=== PATIENT | male | born 1935 | race Caucasian/White ===

== ENCOUNTER 2018-01-18 10:48 | Inpatient (IN) ==
[2018-01-18] MEDS ORDERED: SALINE FLUSH 10ml SYRINGE IVF PRN (11:41)
--- NOTE | 2018-01-18 11:48 | Emergency Department Report ---
GI Bleed HPI - General Chief complaint: GI Bleed Stated complaint: gi bleed Time Seen by Provider: 01/18/18 11:31 - History of Present Illness HPI Narrative: 82-year-old male presents with history of blood clots in stool. He states he is not passing blood, but does have a history of dementia. His main complaint is that he there is a hair in his right eye he would like to have it removed. He does not see any other reason that he is here. Denies fever or chills. Denies any pain. No nausea vomiting or diarrhea - Related Data Home Medications Medication Instructions Recorded Confirmed Aspirin [Adult Aspirin] 81 mg PO DAILY 01/18/18 01/18/18 Bisacodyl EC TAB [Dulcolax] 5 mg PO BID 01/18/18 01/18/18 Cholecalciferol [Vit. D-3] 1,000 unit PO DAILY 01/18/18 01/18/18 Clopidogrel [Plavix] 75 mg PO DAILY 01/18/18 01/18/18 Divalproex Sodium [Depakote] 250 mg PO QAM 01/18/18 01/18/18 Divalproex Sodium [Depakote] 500 mg PO HS 01/18/18 01/18/18 Docusate Sodium [Colace] 100 mg PO BID 01/18/18 01/18/18 Folic Acid [Folate] 1 mg PO DAILY 01/18/18 01/18/18 Gabapentin [Neurontin] 300 mg PO QAM 01/18/18 01/18/18 Gabapentin [Neurontin] 600 mg PO BID 01/18/18 01/18/18 Hydralazine [Apresoline] 25 mg PO TID 01/18/18 01/18/18 Hydrocodone/APAP 7.5/325 [[place] 1 tab PO TID 01/18/18 01/18/18 7.5/325] Hydroxychloroquine [Plaquenil] 400 mg PO DAILY 01/18/18 01/18/18 Labetalol HCl 200 mg PO DAILY 01/18/18 01/18/18 Levothyroxine Sodium 125 mcg PO DAILY 01/18/18 01/18/18 Losartan Potassium [Cozaar] 25 mg PO DAILY 01/18/18 01/18/18 Multivitamin [One Daily 1 tab PO DAILY 01/18/18 01/18/18 Multivitamin] Nystatin Oral Liq. [Mycostatin] 4 ml PO TID 01/18/18 01/18/18 PredniSONE [Deltasone 10 mg] 10 mg PO WB 01/18/18 01/18/18 Sertraline [Zoloft] 100 mg PO DAILY 01/18/18 01/18/18 Sitagliptin Phosphate [Januvia] 50 mg PO DAILY 01/18/18 01/18/18 Allergies Allergy/AdvReac Type Severity Reaction Status Date / Time No Known Allergies Allergy Verified 01/18/18 11:14 Review of Systems Limitations: ROS unobtainable due to patient's medical condition Physical Exam - Limitations Limitations: altered mental status - General General appearance: alert, in no apparent distress - Normal Exams: Head:: Normocephalic without trauma Eyes:: Pupils are PERRLA w/ EOMI, No scleral icterus, irritation, or foreign bodies noted (he has noted between his eyelid and nose which is curving up into his field of vision, this is removed.) Neck:: Full range of motion, without adenopathy, JVD, bruits or thyromegaly Chest/Respirations:: Clear all pearl, with good airflow, and symmetry bilaterally Cardiovascular:: Regular rate and rhythm, without murmur or gallop, Pulses 2+ all extremities, capillary refill, <2 seconds all extremities Neurological:: Patient is alert, and oriented, cranial nerves, motor/sensory/ cerebellar, exams w/o gross deficits, to observation Course Vital Signs Temperature 97.6 F 01/18/18 11:02 Pulse Rate 70 01/18/18 11:02 Respiratory Rate 14 01/18/18 11:02 Blood Pressure 119/75 01/18/18 11:02 Pulse Oximetry 97 01/18/18 11:02 Temperature 97.6 F 01/18/18 11:02 Pulse Rate 69 01/18/18 11:29 Respiratory Rate 18 01/18/18 11:29 Blood Pressure 119/75 01/18/18 11:02 Pulse Oximetry 97 01/18/18 11:02 GI Bleed - [facility] Narrative Medical decision making narrative: Blood work ordered with peripheral IV placed. Patient given 500 ML bolus. Hemoglobin returns at 12 with platelets of 5000. This is repeated with separate blood draw and platelets returned at 6000. CMP shows some abnormalities notably BUN 50. Guaiac stool was performed twice, both times negative. Elevated BUN and reported history of clots in patient's diaper, I am surprised we did not find proof of bleeding. No other source of bleeding noted. Patient appears to be very stable at this time. He was admitted to hospitalist service with oncology consult. Platelet transfusion will be ordered. - Lab Data Result diagrams: 01/22/18 16:00 01/22/18 05:42 Disposition Clinical Impression: Thrombocytopenia with absent radius syndrome Disposition: 02 To [facility] Condition: Time of Disposition: 15:47 - Seen By: physician
[2018-01-18] MEDS: NS 1,000 ML IV SCH ×3 (11:51→15:44)
--- OUTSIDE RECORDS SUMMARY | 2018-01-18 11:55 | External Medical Summary | CCD ---
:1935 Author Name OSCAR BEY Address [address], [place] [id number] Care Team Providers Name Role Phone KARI CONTRERAS Attending Physician Unavailable Vital Signs Unknown or Not Available. Allergies Unknown or Not Available. Procedures Unknown or Not Available. History of Immunizations Immunization Code Date Td (adult) preservative free 113 11/01/2012 Problems Unknown or Not Available. Results COMP METABOLIC - Collect Date/Time: 09/04/2016 09:40 Test Name Code Test Result Test Units Test Ref Range GLUCOSE 121 mg/dL L=70 H=110 BUN 26 mg/dL L=7 H=18 CREATININE 1.84 mg/dL L=0.60 H=1.30 AGE 80 YEARS GFR 35.7 L=60.0 H=120 SODIUM 142 mmol/L L=136 H=145 POTASSIUM 4.8 mmol/L L=3.5 H=5.1 CHLORIDE 108 mmol/L L=98 H=107 CO2 23 mmol/L L=21 H=32 CALCIUM 9.1 mg/dL L=8.5 H=10.1 AST 30 U/L L=15 H=37 ALT 31 U/L L=12 H=78 ALKALINE PHOS 66 U/L L=46 H=116 TOTAL PROTEIN 6.7 g/dL L=6.4 H=8.2 ALBUMIN 3.0 g/dL L=3.4 H=5.0 TOTAL BILI 0.40 mg/dL L=0.00 H=1.00 DIRECT BILIRUBIN - Collect Date/Time: 09/04/2016 09:40 Test Name Code Test Result Test Units Test Ref Range DIRECT BILI <0.05 mg/dL L=0.00 H=0.30 HGB A1C - Collect Date/Time: 09/04/2016 09:40 Test Name Code Test Result Test Units Test Ref Range HGB A1C 6.2 % L=4.5 H=6.2 eAG 131 mg/dL VALPROIC ACID - Collect Date/Time: 09/04/2016 09:40 Test Name Code Test Result Test Units Test Ref Range VALPROIC ACID 19 ug/mL L=50 H=100 Active Medications Unknown or Not Available. Medications Administered During Visit Unknown or Not Available. 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 If you have left the hospital and have any questions, please contact your primary care physician. Chief Complaint and Reason For Visit Chief Complaint Date of Onset LAB Function Status Unknown or Not Available. Plan of Care Unknown or Not Available. Referral/Transition of Care Unknown or Not Available.
--- NOTE | 2018-01-18 15:49 | History & Physical Report ---
History of Present Illness Date: 01/18/18 Chief complaint: rectal bleeding HPI: Akira Arora is an 82-year-old resident of [facility]. He is a poor historian. According to report, he was found this morning with blood in his briefs. He was also reported to have low blood pressure. senior living notes state that he was wheezing, weak, pale, and diaphoretic. He has not been eating or drinking well for the last week. The patient admitted that he wasn't feeling well earlier, but now feels fine. He denies any specific complaints. When he was asked about the bruising and petechiae on his arms, he indicated that he didn't want to talk about it. He was seen in the emergency department on 01/18/18 to be evaluated for rectal bleeding. He was hemodynamically stable. However, his white blood cell count was 2.9 and on repeat was 2.6; hemoglobin was 12.3 and 12.1; and platelet count was 5, and then 6. On CMP, sodium, potassium, were upper limits of normal. Bicarbonate was 21, BUN was elevated at 50, creatinine upper limit of normal at 1.4, and he had transaminitis with AST of 146 and ALT of 149. INR was 1.0. Stool was heme negative. Given his severe thrombocytopenia and new leukopenia, Dr. Madrigal was notified and the patient was admitted to observation status for further evaluation. Review of Systems ROS unobtainable: due to mental status Past Medical History Medical History Updates: Stage III chronic kidney disease. History of stroke. Dementia. Coronary artery disease. Diastolic CHF. Peripheral vascular disease. Mitral valve and aortic valve sclerosis. Hypertension. Rheumatoid arthritis. GERD. Hypothyroidism. Chronic anemia. Depression. Spinal stenosis. Type 2 diabetes with neuropathy. Dysphagia. Chronic pain syndrome. Hypothyroidism. Macular degeneration. Surgical History: Appendectomy. Cholecystectomy. CABG. Cataracts. Right renal artery stent, 2011, Dr. Navarro. 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 Burnett. Right hip hemiarthroplasty, 2013, Dr. Burnett. Excision of subcutaneous masses to both forearms, 2013, Dr. Welsh. Echo, 2013, showed an EF of 60%, LVH, aortic and mitral sclerosis. Lexiscan, 2014, showed LBBB, EF 53%, mild ischemic changes. Family History: Unable to Obtain - Social History Smoking status: Never smoker Substance use type: does not use Alcohol intake frequency: does not drink Current occupational status: retired Previous occupational history: woodworking machinist Current residence: Shelter Medications Home Medications Medication Instructions Recorded Confirmed Type Aspirin [Adult Aspirin] 81 mg PO DAILY 01/18/18 01/18/18 History Bisacodyl EC TAB [Dulcolax] 5 mg PO BID 01/18/18 01/18/18 History Cholecalciferol [Vit. D-3] 1,000 unit PO DAILY 01/18/18 01/18/18 History Clopidogrel [Plavix] 75 mg PO DAILY 01/18/18 01/18/18 History Divalproex Sodium [Depakote] 250 mg PO QAM 01/18/18 01/18/18 History Divalproex Sodium [Depakote] 500 mg PO HS 01/18/18 01/18/18 History Docusate Sodium [Colace] 100 mg PO BID 01/18/18 01/18/18 History Folic Acid [Folate] 1 mg PO DAILY 01/18/18 01/18/18 History Gabapentin [Neurontin] 300 mg PO QAM 01/18/18 01/18/18 History Gabapentin [Neurontin] 600 mg PO BID 01/18/18 01/18/18 History Hydralazine [Apresoline] 25 mg PO TID 01/18/18 01/18/18 History Hydrocodone/APAP 7.5/325 [[place] 1 tab PO TID 01/18/18 01/18/18 History 7.5/325] Hydroxychloroquine [Plaquenil] 400 mg PO DAILY 01/18/18 01/18/18 History Labetalol HCl 200 mg PO DAILY 01/18/18 01/18/18 History Levothyroxine Sodium 125 mcg PO DAILY 01/18/18 01/18/18 History Losartan Potassium [Cozaar] 25 mg PO DAILY 01/18/18 01/18/18 History Multivitamin [One Daily 1 tab PO DAILY 01/18/18 01/18/18 History Multivitamin] Nystatin Oral Liq. [Mycostatin] 4 ml PO TID 01/18/18 01/18/18 History PredniSONE [Deltasone 10 mg] 10 mg PO WB 01/18/18 01/18/18 History Sertraline [Zoloft] 100 mg PO DAILY 01/18/18 01/18/18 History Sitagliptin Phosphate [Januvia] 50 mg PO DAILY 01/18/18 01/18/18 History Allergies Allergy/AdvReac Type Severity Reaction Status Date / Time No Known Allergies Allergy Verified 01/18/18 11:14 Exam Vital Signs: Temperature 96.5 F L 01/18/18 15:11 Pulse Rate 75 01/18/18 15:11 Respiratory Rate 18 01/18/18 15:11 Blood Pressure 159/84 H 01/18/18 15:11 Pulse Oximetry 96 01/18/18 15:11 Height/Weight/BMI: Height 1.63 m Weight 73.3 kg Body Mass Index 27.7 - Constitutional Present: no acute distress, well nourished, well developed - Routine HEENT Exam Head: Present: normocephalic Eye: Present: PERRL. Absent: conjunctival icterus, scleral injection ENT: Present: mucous membranes dry - Routine Neck Exam Present: supple - Routine Respiratory Exam Present: CTA bilaterally - Routine Cardiovascular Exam Present: RRR, S1, S2, murmur - Routine Abdominal Exam Present: soft, normoactive bowel sounds, non distended, non tender - Routine Extremities Exam Present: no edema - Routine Skin Exam Present: dry, warm, wounds (minimal scattered abrasions to legs.), ecchymosis ( multiple areas of ecchymosis and petechiae noted to arms) - Routine Neurological Exam Present: alert, moving all extremities, facial asymmetry (left facial droop), normal speech - Routine Psychiatric Exam Present: cooperative Results - Labs CBC & Chem 7: 01/18/18 21:50 01/18/18 12:10 Assessment and Plan (1) Thrombocytopenia Current visit: Yes Status: Acute Assessment and Plan: Assessment Pancytopenia with profound thrombocytopenia. Mild transaminitis. Elevated BUN, reported history of possible rectal bleed. Stool heme negative in ED. Hyponatremia, present on admission Stage III chronic kidney disease. History of stroke. Dementia. CAD. Diastolic CHF. Peripheral vascular disease. Mitral valve and aortic valve sclerosis. Hypertension. Rheumatoid arthritis. GERD Hypothyroidism. Chronic anemia Depression. Spinal stenosis. Type 2 diabetes with neuropathy. Dysphagia. Chronic pain syndrome. Hypothyroidism. Macular degeneration. Plan Admit to observation status under the hospitalist service. Dr. Ramsey has been consulted regarding his pancytopenia and profound thrombocytopenia. Workup has been ordered. Will give 2 leukoreduced irradiated plateletpheresis packs Will hold Plaquenil as this can cause leukopenia and thrombocytopenia. Will also hold losartan given his elevated potassium, BUN and reported poor oral intake. Monitor hemoglobin. Will reassess stool for occult blood. Start IV fluids, half-normal saline at 100 mL per hour. senior living notes reviewed. He is on a regular diet with thin liquids there, which will be resumed during hospitalization. Monitor blood glucose, and if they run high, we may instead place him on a consistent carbohydrate diet. Code Status: DNR. PCP: Dr. Hernandez. D/W Dr. Ramsey. Prior records & long term records were reviewed. DVT Prophylaxis: SCD's Resuscitation Status: Do Not Resuscitate - Physician Narrative Physician: Altagracia Madrigal MD Narrative: Date: 01/18/18 Time: 2300 I have independently evaluated and examined this patient. I reviewed the chart, the patient's history, and the [employer]ER/PA's documented findings as above. We discussed and formulated the assessment and plan as above with additions as below: Mr. Arora presented to the emergency room after blood clots were noted in his diaper at the nursing facility this morning. Rectal examination in the ER revealed brown stool which was heme negative however platelet count was 5K and repeated 6K. Hemoglobin was unremarkable white count was low as noted above. Patient is unable to provide any meaningful history and family was not available when I saw him. Patient denied hematemesis, nosebleeds, or rectal bleeding. There was small amount of dried blood periorally, tongue is dry and patient did not although in his mouth adequately to fully evaluate mucosal surfaces of the oral cavity Mild some conjunctival hemorrhage in the right eye, left sclera is clear Respirations nonlabored, abdomen benign, spleen/liver not palpably enlarged Extensive bruising on the extremities MCV 91; creatinine 1.4 with BUN 50-creatinine has been higher in the past but BUN has always been lower. Elevated transaminases Recent med rec from long term reviewed-patient was on methotrexate 2.5 mg daily for proximally 3 weeks, discontinued earlier this week. Given chronic renal failure at risk for methotrexate toxicity as discussed with Dr. Ramsey. Dr. Ramsey has initiated leucovorin pending return of methotrexate level. Hepatic toxicity would be compatible with methotrexate toxicity although I suspect renal insufficiency is chronic taste on prior creatinines available in our system. Elevated BUN consistent with recent GI blood loss which we have not yet confirmed but will continue to monitor hemoglobins serially. Following platelet packs this evening (given emergently as family could not be contacted to consent for transfusion although in the emergency room they requested evaluation and management of the platelet disorder) platelet count increased to 73K. Gabapentin dose decreased slightly due to renal insufficiency. Old records/labs reviewed, discussed with Dr. Crabtree in addition to Dr. Ramsey. Admit as inpatient-patient will require continued IV therapy in addition to transfusions for stabilization. Hospital Course Summary Disclaimer: The visit summary below is not to be considered part of the above Progress Note. Hospital Course: 01/18/18 Admit as inpatient under the hospitalist service. Dr. Ramsey has been consulted regarding his pancytopenia and profound thrombocytopenia. Workup has been ordered. Will give 2 leukoreduced irradiated plateletpheresis packs Will hold Plaquenil as this can cause leukopenia and thrombocytopenia. Recent treatment with daily methotrexate-worrisome for methotrexate toxicity, leucovorin initiated pending methotrexate level. Will also hold losartan given his elevated potassium, BUN and reported poor oral intake. Monitor hemoglobin. Will reassess stool for occult blood. Start IV fluids, half-normal saline at 100 mL per hour. senior living notes reviewed. He is on a regular diet with thin liquids there, which will be resumed during hospitalization. Monitor blood glucose, and if they run high, we may instead place him on a consistent carbohydrate diet.
[2018-01-18] MEDS ORDERED: POLYETHYL GLYCOL 3350 17gm PACKET PO PRN (15:56)
[2018-01-18] MEDS ORDERED: ACETAMINOPHEN 325 MG TABLET PO PRN (15:56)
[2018-01-18] MEDS ORDERED: BISACODYL 10 MG SUPPOSITORY RECTALLY PRN (15:56)
[2018-01-18] MEDS ORDERED: ONDANSETRON 4 MG/2 ML INJECTION IVP PRN (15:56)
[2018-01-18] MEDS ORDERED: SENNA + DOCUSATE TABLET PO PRN (15:56)
[2018-01-18] MEDS ORDERED: NS FLUSH BAG 500ml IV PRN (16:17)
--- NOTE | 2018-01-18 18:17 | Consult Note ---
Oncology HPI - Data of Consult Patient: new to practice Consult date: 01/18/18 Requesting Physician: Altagracia Madrigal MD Primary Care Provider: Diane Hernnadez MD - Consult Narrative Reason for consult: leukopenia and thrombocytopenia History of present illness: Patient is a resident at [facility]. He is brought into the emergency room today with appropriate red blood per stool and increasing bruising and bleeding. He was last hospitalized here in 2016 for TIA. His ability to communicate is limited.. Review of Systems ROS unobtainable: due to mental status [facility] Patient Stated Medical History Cerebrovascular Accident Yes Dementia Yes Transient Ischemic Attacks ( Yes TIA) Angina Yes Coronary Artery Disease Yes Diabetes Mellitus Type 2 Yes Gastroesophageal Reflux Yes Disease Hx Renal Disease Yes Anemia Yes Medical History Updates: Stage III chronic kidney disease. History of stroke. Dementia. Coronary artery disease. Diastolic CHF. Peripheral vascular disease. Mitral valve and aortic valve sclerosis. Hypertension. Rheumatoid arthritis. GERD. Hypothyroidism. Chronic anemia. Depression. Spinal stenosis. Type 2 diabetes with neuropathy. Dysphagia. Chronic pain syndrome. Hypothyroidism. Macular degeneration. Rheumatoid arthritis Surgical History: Appendectomy. Cholecystectomy. CABG. Cataracts. Right renal artery stent, 2011, Dr. Navarro. 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 Burnett. Right hip hemiarthroplasty, 2013, Dr. Burnett. Excision of subcutaneous masses to both forearms, 2013, Dr. Welhs. Echo, 2014, showed an EF of 60%, LVH, aortic and mitral sclerosis. Lexiscan, 2015, showed LBBB, EF 53%, mild ischemic changes. - Social History Smoking status: Never smoker Substance use type: does not use Alcohol intake frequency: does not drink Current occupational status: retired Previous occupational history: cnc lathe machinist Current residence: Assisted Medications Home Medications Medication Instructions Recorded Confirmed Type Aspirin [Adult Aspirin] 81 mg PO DAILY 01/18/18 01/18/18 History Bisacodyl EC TAB [Dulcolax] 5 mg PO BID 01/18/18 01/18/18 History Cholecalciferol [Vit. D-3] 1,000 unit PO DAILY 01/18/18 01/18/18 History Clopidogrel [Plavix] 75 mg PO DAILY 01/18/18 01/18/18 History Divalproex Sodium [Depakote] 250 mg PO QAM 01/18/18 01/18/18 History Divalproex Sodium [Depakote] 500 mg PO HS 01/18/18 01/18/18 History Docusate Sodium [Colace] 100 mg PO BID 01/18/18 01/18/18 History Folic Acid [Folate] 1 mg PO DAILY 01/18/18 01/18/18 History Gabapentin [Neurontin] 300 mg PO QAM 01/18/18 01/18/18 History Gabapentin [Neurontin] 600 mg PO BID 01/18/18 01/18/18 History Hydralazine [Apresoline] 25 mg PO TID 01/18/18 01/18/18 History Hydrocodone/APAP 7.5/325 [[place] 1 tab PO TID 01/18/18 01/18/18 History 7.5/325] Hydroxychloroquine [Plaquenil] 400 mg PO DAILY 01/18/18 01/18/18 History Labetalol HCl 200 mg PO DAILY 01/18/18 01/18/18 History Levothyroxine Sodium 125 mcg PO DAILY 01/18/18 01/18/18 History Losartan Potassium [Cozaar] 25 mg PO DAILY 01/18/18 01/18/18 History Multivitamin [One Daily 1 tab PO DAILY 01/18/18 01/18/18 History Multivitamin] Nystatin Oral Liq. [Mycostatin] 4 ml PO TID 01/18/18 01/18/18 History PredniSONE [Deltasone 10 mg] 10 mg PO WB 01/18/18 01/18/18 History Sertraline [Zoloft] 100 mg PO DAILY 01/18/18 01/18/18 History Sitagliptin Phosphate [Januvia] 50 mg PO DAILY 01/18/18 01/18/18 History Allergies Allergy/AdvReac Type Severity Reaction Status Date / Time No Known Allergies Allergy Verified 01/18/18 11:14 Exam Vital signs: Temperature 96.5 F L 01/18/18 15:11 Pulse Rate 75 01/18/18 15:11 Respiratory Rate 18 01/18/18 15:11 Blood Pressure 159/84 H 01/18/18 15:11 Pulse Oximetry 96 01/18/18 15:11 - Constitutional no acute distress, disheveled, cooperative - Routine HEENT Exam Head: Present: normocephalic Eye: Present: EOMI, scleral injection Comments: Crusting of the lips with blood present on the lips - Routine Neck Exam Present: supple. Absent: lymphadenopathy - Routine Chest/Breast/Axilla Exam Axillae: Absent: lymphadenopathy - Routine Respiratory Exam Present: decreased breath sounds. Absent: accessory muscle use - Routine Cardiovascular Exam Present: RRR, no murmur - Routine Abdominal Exam Present: soft, organomegaly (spleen down 2 fingerbreadths) - Routine Extremities Exam Absent: cyanosis, clubbing - Routine Skin Exam Present: ecchymosis (multiple ecchymosis present on the arms hands at any IV site.) - Routine Neurological Exam Present: CN II-XII intact. Absent: oriented X3 - Routine Psychiatric Exam Present: cooperative. Absent: good insight, good judgment Oncology Results - Labs CBC & Chem 7: 01/18/18 16:38 01/18/18 12:10 Labs: Short CBC 01/18/18 Range/Units 16:38 WBC 2.2 L (4.5-11.0) T/MM3 Hgb 11.3 L (13.5-17.5) GM/DL Hct 33.6 L (41-53) % Plt Count 8 L* (130-400) T/MM3 - Impressions Laboratory Tests 01/18/18 01/18/18 01/18/18 12:10 12:10 16:38 WBC 2.9 L 2.2 L Plt Count 8 L* Creatinine 1.4 AST 146 H ALT 149 H Lactate Dehydrogenase Specimen Hemolysis 51 H 01/18/18 17:26 WBC Plt Count Creatinine AST ALT Lactate Dehydrogenase 563 Specimen Hemolysis Assessment and Plan Assessment and Plan: Pancytopenia with white count of 2.2, normal differential platelet count of 8000 and hemoglobin of 11.2 with reticulocyte count that's very low at 0.3%. LDH is normal at 568. This patient has rheumatoid arthritis and is currently on methotrexate 2.5 mg daily he has chronic renal insufficiency. This is most likely secondary to either build up of MTX with store in ascites or pleural effusion. Will draw methotrexate level and start leucovorin either orally or IV and follow counts. Will transfuse platelets with significant mucosal bleeding and see response to platelets and follow. 2. RA on Prednisone, Hydroxychloraquine and Methotrexate 3. 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 4. History of stroke. 5. Dementia. 6. CAD. 7. Diastolic CHF. 8. Peripheral vascular disease. 9. Mitral valve and aortic valve sclerosis. 10. Hypertension. 11. Rheumatoid arthritis. 12. GERD 13. Hypothyroidism. 14. Chronic anemia 15. Depression. 16. Spinal stenosis. 17. Type 2 diabetes with neuropathy. 18. Dysphagia. 19. Chronic pain syndrome. 20. Hypothyroidism. 21. Macular degeneration. Recommendations: 1 platelets 2. Obtain methotrexate level and begin leucovorin 25 mg IV every 6 hours. 3. Hydration and optimize urine output. 4. Avoid PPIs 5. Supportive care Thank you very much for alignment of 20% in the care of this patient
[2018-01-18] MEDS ORDERED: LEUCOVORIN 25 MG IV SCH (19:15)
[2018-01-18] MEDS ORDERED: [UNRECOGNIZED DRUG - OTHER] IV SCH (19:15)
[2018-01-18] MEDS: 1/2 NS 1,000 ML IV SCH (20:22)
[2018-01-18] MEDS: NS IV SCH (20:23)
[2018-01-18] MEDS: LEUCOVORIN IV SCH (20:23)
[2018-01-18] MEDS ORDERED: HYDRALAZINE 25 MG TABLET PO SCH (21:00)
[2018-01-18] MEDS ORDERED: GABAPENTIN 600 MG TABLET PO SCH (21:00)
[2018-01-18] MEDS: Bisacodyl EC TAB 5 MG TABLET PO SCH (23:04)
[2018-01-18] MEDS: HYDROCODONE/APAP 7.5 MG/325 MG TABLET PO SCH (23:05)
[2018-01-18] MEDS: DIVALPROEX 500 MG TABLET PO SCH (23:05)
[2018-01-18] MEDS ORDERED: GABAPENTIN 300 MG CAPSULE PO SCH (23:16)
[2018-01-19] MEDS: NS IV SCH ×4 (02:48→18:30)
[2018-01-19] MEDS: LEUCOVORIN IV SCH ×4 (02:48→18:30)
[2018-01-19] MEDS: 1/2 NS 1,000 ML IV SCH ×3 (03:51→18:30)
[2018-01-19] MEDS: LEVOTHYROXINE 125 MCG TABLET PO SCH (07:40)
[2018-01-19] MEDS: HYDRALAZINE 25 MG TABLET PO SCH ×3 (08:24→17:48)
[2018-01-19] MEDS: PredniSONE 10 MG TABLET PO SCH (08:24)
[2018-01-19] MEDS: SITAGLIPTIN 100 MG TABLET PO SCH (08:25)
[2018-01-19] MEDS: SERTRALINE 100 MG TABLET PO SCH (08:25)
[2018-01-19] MEDS: LABETALOL 100 MG TABLET PO SCH (08:25)
[2018-01-19] MEDS: GABAPENTIN 300 MG CAPSULE PO SCH (08:26)
[2018-01-19] MEDS: HYDROCODONE/APAP 7.5 MG/325 MG TABLET PO SCH ×3 (08:26→20:41)
[2018-01-19] MEDS: Bisacodyl EC TAB 5 MG TABLET PO SCH ×2 (08:26→20:41)
[2018-01-19] MEDS: DIVALPROEX 250 MG TABLET PO SCH (08:26)
--- NOTE | 2018-01-19 08:58 | Progress Note ---
Oncology Subjective Patient sitting in chair. More alert today. Talkative but not oriented to person place or time. Ecchymoses appear smaller. Less bruising and bleeding. Lips are better today. Review of systems not obtainable secondary to dementia. Exam Vital signs: Temperature 97.8 F 01/19/18 07:00 Pulse Rate 76 01/19/18 07:00 Respiratory Rate 16 01/19/18 07:00 Blood Pressure 122/74 01/19/18 07:00 Pulse Oximetry 95 01/19/18 07:00 - Constitutional no acute distress - Routine HEENT Exam Head: Present: normocephalic Eye: Present: EOMI, PERRL ENT: Present: mucous membranes moist (blood that was present on lips last night is no longer present.) - Routine Neck Exam Present: supple. Absent: lymphadenopathy - Routine Respiratory Exam Present: CTA bilaterally - Routine Cardiovascular Exam Present: RRR, murmur (blowing systolic) - Routine Abdominal Exam Present: soft, non distended, non tender - Routine Extremities Exam Present: edema (1+) - Routine Back/Spine/Pelvis Exam Comments: Arthritis present in hands. He is unable to lift shoulders. - Routine Skin Exam Present: warm, ecchymosis - Routine Neurological Exam Present: alert, CN II-XII intact. Absent: oriented X3 - Routine Psychiatric Exam Absent: normal thought process Oncology Results - Labs CBC & Chem 7: 01/22/18 16:00 01/22/18 05:42 Labs: Short CBC 01/19/18 Range/Units 05:01 WBC 2.6 L (4.5-11.0) T/MM3 Hgb 10.1 L (13.5-17.5) GM/DL Hct 30.6 L (41-53) % Plt Count 59 L (130-400) T/MM3 BMP 01/19/18 05:01 Sodium 141 Potassium 4.0 D Chloride 111 H Carbon Dioxide 24 BUN 38.0 H Creatinine 1.2 D Glucose 76 Calcium 8.5 Liver Function 01/19/18 Range/Units 05:01 Total Bilirubin 0.80 (0.20-1.30) MG/DL AST 106 H (17-59) U/L ALT 124 H (1-50) U/L Alkaline Phosphatase 50 (38-126) U/L Albumin 3.1 L (3.5-5.0) g/dL Laboratory Tests 01/18/18 01/18/18 01/18/18 12:50 16:38 16:38 WBC 2.6 L 2.2 L Plt Count 6 L* 8 L* Neut % (Auto) Lymph % (Auto) Eos % (Auto) Neut # (Auto) INR 0.95 APTT > 200.0 H* Fibrinogen 260 D-Dimer 1043 H AST ALT Lactate Dehydrogenase Vitamin B12 Folate 01/18/18 01/18/18 01/19/18 17:26 21:50 05:01 WBC 2.6 L Plt Count 73 L D 59 L Neut % (Auto) 51.5 Lymph % (Auto) 41.2 Eos % (Auto) 6.5 H Neut # (Auto) 1.3 L INR APTT Fibrinogen D-Dimer AST ALT Lactate Dehydrogenase 563 Vitamin B12 757 Folate > 20.0 H 01/19/18 05:01 WBC Plt Count Neut % (Auto) Lymph % (Auto) Eos % (Auto) Neut # (Auto) INR APTT Fibrinogen D-Dimer AST 106 H ALT 124 H Lactate Dehydrogenase Vitamin B12 Folate Methotrexate level is 0.13 with this last dose being given on 01/14/18. We'll continue leucovorin and repeat methotrexate level tomorrow. We'll continue leucovorin until methotrexate level is less than 0.01. Assessment and Plan Assessment and Plan: Pancytopenia with white count of 2.2, normal differential platelet count of 8000 and hemoglobin of 11.2 with reticulocyte count that's very low at 0.3%. LDH is normal at 568. This patient has rheumatoid arthritis and is currently on methotrexate 2.5 mg daily he has chronic renal insufficiency. This is most likely secondary to either build up of MTX with store in ascites or pleural effusion. Methotrexate level at admission was 0.13. This is 3 days after discontinuation of the methotrexate. We'll continue leucovorin until after methotrexate level decreases to less than 0.01. Platelets improved to 79,000 with transfusion. They're currently 59,000 today. 2. Prolonged PTT of uncertain etiology. This could be secondary to lupus anticoagulant, acquired inhibitor of factor VIII, factor VIII deficiency. Will obtain factor VIII level and factor VIII inhibitor level along with mixing study and lupus anticoagulant. Before meals that he has not been given in the heparin-like substances. 3. RA on Prednisone, Hydroxychloraquine and Methotrexate 4. 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 5. CAD. 6. Elevated liver functions probably secondary to methotrexate 7. Peripheral vascular disease. 8. Mitral valve and aortic valve sclerosis. 9. GERD 10. Hypothyroidism. 11. Chronic anemia 12 Type 2 diabetes with neuropathy. Recommendations: 1 Follow platelets and transfuse if less than 20K with increased PTT 2. Continue leucovorin 25 mg IV every 6 hours Methotrexate level in AM. 3. Hydration and optimize urine output. 4. Avoid PPIs and NSAI 5. Obtain factor VIII level, factor VIII inhibitor level, mixing study and lupus anticoagulant. Repeat studies today. 5. Supportive care Thank you very much for allowing me to participate in the care of this patient. - Time Spent With Patient Total time spent is greater than 50% in coordination of care (as documented) at patient's floor/unit and/or counseling patient: 25 - 35 minutes
[2018-01-19] MEDS: GABAPENTIN 600 MG TABLET PO SCH ×2 (16:08→20:40)
--- NOTE | 2018-01-19 16:25 | Progress Note ---
- Date 01/19/18 Subjective: Jt is seen today in follow up. He is alert, non-verbal. Appears to have some dried blood around lips. Unable to give me a history- chart is reviewed for collateral information. Objective Vital signs: Temperature 97.8 F 01/19/18 07:00 Pulse Rate 72 01/19/18 15:39 Respiratory Rate 18 01/19/18 15:39 Blood Pressure 143/53 H 01/19/18 15:39 Pulse Oximetry 97 01/19/18 15:39 Height/Weight/BMI: Weight 74.3 kg - Constitutional Present: no acute distress, disheveled, other (restless. ) - Routine HEENT Exam Head: Present: atraumatic ENT: Present: mucous membranes dry (Some dried blood around lips. ) - Routine Respiratory Exam Present: CTA bilaterally. Absent: rales, rhonchi, crackles - Routine Cardiovascular Exam Present: RRR, S1, S2, murmur - Routine Abdominal Exam Present: soft, non distended, non tender - Routine Extremities Exam Present: no edema, non tender - Routine Musculoskeletal Exam Musculoskeletal: Present: moving extremities well - Routine Skin Exam Present: intact, dry, warm - Routine Neurological Exam Present: alert, moving all extremities. Absent: oriented X3 - Routine Psychiatric Exam Present: unable to assess Results - Labs CBC & Chem 7: 01/19/18 05:01 01/19/18 05:01 Labs: +FOB Assessment and Plan (1) Thrombocytopenia Current visit: Yes Status: Acute Assessment and Plan: Assessment Pancytopenia with profound thrombocytopenia. Mild transaminitis. Elevated BUN, reported history of possible rectal bleed. Stool heme negative in ED. Hyponatremia, present on admission Stage III chronic kidney disease. History of stroke. Dementia. CAD. Diastolic CHF. Peripheral vascular disease. Mitral valve and aortic valve sclerosis. Hypertension. Rheumatoid arthritis. GERD Hypothyroidism. Chronic anemia Depression. Spinal stenosis. Type 2 diabetes with neuropathy. Dysphagia. Chronic pain syndrome. Hypothyroidism. Macular degeneration. Plan Patient continues to demonstrate pancytopenia and FOB is positive. Requires ongoing inpatient evaluation and treatment, changed to inpatient status post admission. Dr. Ramsey following- appreciate assistance. Peripheral smear and thrombotic panel are pending. s/p 2 leukoreduced irradiated plateletpheresis packs Will hold Plaquenil & MTX as this can cause leukopenia and thrombocytopenia. Continue IVF as he still appears a bit dry. senior care notes reviewed. He is on a regular diet with thin liquids there, which will be resumed during hospitalization. BG has been stable. Code Status: DNR. PCP: Dr. Hernandez. DVT Prophylaxis: SCD's GI Prophylaxis: Pepcid Resuscitation Status: Do Not Resuscitate - Physician Narrative Physician: Altagracia Madrigal MD Narrative: Date: 01/19/18 Time: 1800 I have independently evaluated and examined this patient. I reviewed the chart, the patient's history, and the COVER C[employer] MACHINE/PA's documented findings as above. We discussed and formulated the assessment and plan as above with additions as below: Jt was resting in bed and indicated he did not wish to be bothered by pulling the covers over his head at the time of my assessment. He complained of being cold but did not offer any other history. Nursing report oral intake has been poor, ongoing confusion, incontinence, and generalized weakness requiring lift to assist with transfer to chair. NAD, respirations nonlabored with clear breath sounds anteriorly Extensive bruising over the forearms Repeat PTT 23.5--suspect elevated PTT yesterday was drawn through a heparinized line Additional coag studies pending including PTT mixing study Hemoglobin and platelet count drifting down following transfusion of platelets yesterday, GI blood loss present but not actively bleeding, continue to monitor. Elevated methotrexate level of 0.13-3 days after medication discontinued reported to Dr. Ramsey this morning; continue leucovorin. Probable cause of neutropenia, thrombocytopenia, and liver enzyme abnormalities. Discussed with Dr. Ramsey this morning; remains at high risk for hematologic complications due to thrombocytopenia. Hospital Course Summary Disclaimer: The visit summary below is not to be considered part of the above Progress Note. Hospital Course: 01/18/18 Admit as inpatient under the hospitalist service. Dr. Ramsey has been consulted regarding his pancytopenia and profound thrombocytopenia. Workup has been ordered. Will give 2 leukoreduced irradiated plateletpheresis packs Will hold Plaquenil as this can cause leukopenia and thrombocytopenia. Recent treatment with daily methotrexate-worrisome for methotrexate toxicity, leucovorin initiated pending methotrexate level. Will also hold losartan given his elevated potassium, BUN and reported poor oral intake. Monitor hemoglobin. Will reassess stool for occult blood. Start IV fluids, half-normal saline at 100 mL per hour. senior care notes reviewed. He is on a regular diet with thin liquids there, which will be resumed during hospitalization. Monitor blood glucose, and if they run high, we may instead place him on a consistent carbohydrate diet. 01/19/18 Patient continues to demonstrate pancytopenia and FOB is positive. Peripheral smear and thrombotic panel are pending. s/p 2 leukoreduced irradiated plateletpheresis packs Repeat PTT 23.5--suspect elevated PTT yesterday was drawn through a heparinized line. Additional coag studies pending including PTT mixing study. Hemoglobin and platelet count drifting down following transfusion of platelets yesterday, GI blood loss present but not actively bleeding, continue to monitor. Elevated methotrexate level of 0.13-3 days after medication discontinued reported to Dr. Ramsey this morning; continue leucovorin. Probable cause of neutropenia, thrombocytopenia, and liver enzyme abnormalities. Will hold Plaquenil as this can also cause leukopenia and thrombocytopenia. Continue IVF as he still appears a bit dry. senior care notes reviewed. He is on a regular diet with thin liquids there, which will be resumed during hospitalization. BG has been stable.
[2018-01-19] MEDS: FAMOTIDINE 20 MG TABLET PO SCH (20:41)
[2018-01-19] MEDS: DIVALPROEX 500 MG TABLET PO SCH (20:42)
[2018-01-19] MEDS ORDERED: FALL RISK - PHARMACY CONSULT MC ONE (20:49)
[2018-01-20] MEDS: 1/2 NS 1,000 ML IV SCH ×5 (01:23→18:49)
[2018-01-20] MEDS: LEUCOVORIN IV SCH ×4 (01:24→20:01)
[2018-01-20] MEDS: NS IV SCH ×4 (01:24→20:01)
[2018-01-20] MEDS: LEVOTHYROXINE 125 MCG TABLET PO SCH (05:45)
[2018-01-20] MEDS: HYDRALAZINE 25 MG TABLET PO SCH ×3 (08:39→17:05)
[2018-01-20] MEDS: DIVALPROEX 250 MG TABLET PO SCH (08:40)
[2018-01-20] MEDS: SERTRALINE 100 MG TABLET PO SCH (08:40)
[2018-01-20] MEDS: Bisacodyl EC TAB 5 MG TABLET PO SCH ×2 (08:40→22:47)
[2018-01-20] MEDS: GABAPENTIN 300 MG CAPSULE PO SCH (08:40)
[2018-01-20] MEDS: FOLIC ACID 1 MG TABLET PO SCH (08:40)
[2018-01-20] MEDS: PredniSONE 10 MG TABLET PO SCH (08:40)
[2018-01-20] MEDS: LABETALOL 100 MG TABLET PO SCH (08:41)
[2018-01-20] MEDS: SITAGLIPTIN 100 MG TABLET PO SCH (09:00)
[2018-01-20] MEDS: HYDROCODONE/APAP 7.5 MG/325 MG TABLET PO SCH ×3 (09:00→22:48)
--- NOTE | 2018-01-20 09:29 | Progress Note ---
<Catalina Romero L - Last Filed: 01/20/18 14:07> Oncology Subjective Reclining in hospital bed, alone in room. Opens eyes when spoken to, but no verbal response to my questions. When asked if having pain, shakes head no Unable to obtain ROS secondary to dementia. Exam Vital signs: Temperature 96.5 F L 01/20/18 07:39 Pulse Rate 95 01/20/18 07:39 Respiratory Rate 22 01/20/18 07:39 Blood Pressure 128/81 01/20/18 07:39 Pulse Oximetry 95 01/20/18 07:39 Narrative: Generic Name Dose Route Start Last Admin Trade Name Freq PRN Reason Stop Dose Admin Acetaminophen 325 - 650 mg 01/18/18 15:56 Tylenol PO Q5H PRN Discomfort Hydrocodone Bitart/Acetaminophen 1 tab 01/18/18 21:00 01/20/18 09:00 [place] 7.5/325 PO Not Given TID FRED Bisacodyl 5 mg 01/18/18 21:00 01/20/18 08:40 Dulcolax PO 5 mg BID FRED Administration Bisacodyl 10 mg 01/18/18 15:56 Dulcolax RECTALLY DAILY PRN Constipation Divalproex Sodium 250 mg 01/19/18 09:00 01/20/18 08:40 Depakote PO 250 mg QAM FRED Administration Divalproex Sodium 500 mg 01/18/18 21:00 01/19/18 20:42 Depakote PO 500 mg HS FRED Administration Famotidine 20 mg 01/19/18 21:00 01/19/18 20:41 Pepcid PO 20 mg HS FRED Administration Folic Acid 1 mg 01/20/18 09:00 01/20/18 08:40 Folate PO 1 mg DAILY FRED Administration Gabapentin 300 mg 01/19/18 09:00 01/20/18 08:40 Neurontin PO 300 mg QAM FRED Administration Gabapentin 600 mg 01/19/18 15:00 01/19/18 20:40 Neurontin PO 600 mg 1200,2100 FRED Administration Hydralazine HCl 25 mg 01/19/18 08:00 01/20/18 08:39 Apresoline PO 25 mg WM FRED Administration Sodium Chloride 1,000 mls @ 100 mls/hr 01/18/18 16:30 01/20/18 08:37 1/2 Normal Saline IV Not Given .Q10H FRED Leucovorin Calcium 25 mg/ 25 mls @ 150 mls/hr 01/18/18 19:30 01/20/18 06:58 Sodium Chloride IV Infused Q6H FRED Infusion Labetalol HCl 200 mg 01/19/18 09:00 01/20/18 08:41 Normodyne PO 200 mg DAILY FRED Administration Levothyroxine Sodium 125 mcg 01/19/18 07:00 01/20/18 05:45 Synthroid PO 125 mcg ACB FRED Administration Ondansetron HCl 4 mg 01/18/18 15:56 Zofran IVP Q6H PRN Nausea &/or vomiting Polyethylene Glycol 17 gm 01/18/18 15:56 Miralax PO DAILY PRN Prednisone 10 mg 01/19/18 08:00 01/20/18 08:40 Deltasone 10 Mg PO 10 mg WB FRED Administration Senna/Docusate Sodium 1 tab 01/18/18 15:56 Senna Plus Tablet PO BID PRN Constipation Sertraline HCl 100 mg 01/19/18 09:00 01/20/18 08:40 Zoloft PO 100 mg DAILY FRED Administration Sitagliptin Phosphate 50 mg 01/19/18 09:00 01/20/18 09:00 Januvia PO Not Given DAILY FRED Sodium Chloride 10 - 80 ml 01/18/18 11:41 01/18/18 11:52 Iv Flush IVF 10 ml PRN PRN Administration [place]ushing Sodium Chloride 500 ml 01/18/18 16:17 Normal Saline IV PRN PRN Discontinued Medications Generic Name Dose Route Start Last Admin Trade Name Freq PRN Reason Stop Dose Admin Gabapentin 600 mg 01/18/18 21:00 01/18/18 23:04 Neurontin PO 600 mg BID FRED Administration Gabapentin 300 mg 01/18/18 23:16 01/19/18 09:39 Neurontin PO Not Given 1500,2100 FRED Hydralazine HCl 25 mg 01/18/18 21:00 01/18/18 23:05 Apresoline PO 25 mg TID FRED Administration Sodium Chloride 1,000 mls @ 999 mls/hr 01/18/18 11:45 01/18/18 15:44 Normal Saline IV Not Given .Q1H1M FRED Leucovorin Calcium 25 mg/ 2.5 mls @ 150 mls/hr 01/18/18 19:15 Sterile Water IV Q6H [facility] Pharmacy Consult 1 each 01/19/18 20:49 Pharmacy Consult - Fall Risk 01/19/18 20:50 ONE TIME ONE - Constitutional no acute distress, well developed, cooperative - Routine HEENT Exam Head: Present: normocephalic Eye: Present: EOMI ENT: Present: mucous membranes moist - Routine Neck Exam Present: supple. Absent: lymphadenopathy - Routine Respiratory Exam Present: decreased breath sounds. Absent: wheezes, crackles - Routine Cardiovascular Exam Present: RRR, murmur - Routine Abdominal Exam Present: soft, normoactive bowel sounds, non tender - Routine Extremities Exam Present: no edema - Routine Skin Exam Present: intact, dry, pallor, ecchymosis (nivia. arms). Absent: petechiae - Routine Neurological Exam Present: alert, moving all extremities - Routine Psychiatric Exam Present: cooperative Oncology Results - Labs CBC & Chem 7: 01/20/18 05:41 01/20/18 05:41 Labs: Short CBC 01/20/18 Range/Units 05:41 WBC 2.1 L (4.5-11.0) T/MM3 Hgb 10.6 L (13.5-17.5) GM/DL Hct 31.2 L (41-53) % Plt Count 45 L (130-400) T/MM3 [facility] 01/20/18 05:41 Sodium 140 Potassium 4.3 Chloride 108 H Carbon Dioxide 22 BUN 29.0 H Creatinine 1.1 Glucose 68 L Calcium 8.5 Liver Function 01/20/18 Range/Units 05:41 Total Bilirubin 1.30 (0.20-1.30) MG/DL AST 79 H (17-59) U/L ALT 100 H (1-50) U/L Alkaline Phosphatase 53 (38-126) U/L Albumin 3.3 L (3.5-5.0) g/dL Assessment and Plan Assessment and Plan: Pancytopenia with white count of 2.2, normal differential platelet count of 8000 and hemoglobin of 11.2 with reticulocyte count that's very low at 0.3%. LDH is normal at 568. This patient has rheumatoid arthritis and is currently on methotrexate 2.5 mg daily he has chronic renal insufficiency. This is most likely secondary to either build up of MTX with store in ascites or pleural effusion. Methotrexate level at admission was 0.13. This is 3 days after discontinuation of the methotrexate. We'll continue leucovorin until after methotrexate level decreases to less than 0.01. Methotrexate level today is < 0.04. Platelets improved to 79,000 with transfusion, platelets currently 84,000 today. 2. Prolonged PTT of uncertain etiology. This could be secondary to lupus anticoagulant, acquired inhibitor of factor VIII, factor VIII deficiency. Will obtain factor VIII level and factor VIII inhibitor level along with mixing study and lupus anticoagulant. 3. RA on Prednisone, Hydroxychloraquine and Methotrexate 4. 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 5. CAD. 6. Elevated liver functions probably secondary to methotrexate 7. Peripheral vascular disease. 8. Mitral valve and aortic valve sclerosis. 9. GERD 10. Hypothyroidism. 11. Chronic anemia 12 Type 2 diabetes with neuropathy. Plan Continue supportive care/leucovorin until methotrexate level less than 0.01. Follow platelets. - Time Spent With Patient Total time spent is greater than 50% in coordination of care (as documented) at patient's floor/unit and/or counseling patient: less than 15 minutes <Terry Ramsey - Last Filed: 01/20/18 16:58> Exam Vital signs: Temperature 98.0 F 01/20/18 15:00 Pulse Rate 80 01/20/18 15:00 Respiratory Rate 18 01/20/18 15:02 Blood Pressure 114/64 01/20/18 15:00 Pulse Oximetry 95 01/20/18 15:00 Oncology Results - Labs CBC & Chem 7: 01/20/18 05:41 01/20/18 05:41 Labs: Short CBC 01/20/18 Range/Units 05:41 WBC 2.1 L (4.5-11.0) T/MM3 Hgb 10.6 L (13.5-17.5) GM/DL Hct 31.2 L (41-53) % Plt Count 45 L (130-400) T/MM3 BMP 01/20/18 05:41 Sodium 140 Potassium 4.3 Chloride 108 H Carbon Dioxide 22 BUN 29.0 H Creatinine 1.1 Glucose 68 L Calcium 8.5 Liver Function 01/20/18 Range/Units 05:41 Total Bilirubin 1.30 (0.20-1.30) MG/DL AST 79 H (17-59) U/L ALT 100 H (1-50) U/L Alkaline Phosphatase 53 (38-126) U/L Albumin 3.3 L (3.5-5.0) g/dL Assessment and Plan Assessment and Plan: Patient seen, Chart reviewed. I participated in the development of hte plan of care of this patient. Platelets 45K on 01/20/18. Methotrexate level today is now 0.04. Will continue leukovorin 24 hours more and then oral folate supplementation. PTT of >200 on admission corrected with redraw at 23. Mixing study pending. Stool positive for blood. Probably GI toxicity from methotrexate. LFT better. Also probable MTX toxicity. Recommendations. Supportive care Stop Leukovorin tomorrow Follow platelets and transfuse if less than 10 or active bleeding. Discussed with Dr. Madrigal Laboratory Tests 01/18/18 01/18/18 01/18/18 12:10 16:38 17:26 WBC Plt Count APTT > 200.0 H* Fibrinogen 260 Total Bilirubin 0.90 AST 146 H ALT 149 H Alkaline Phosphatase 53 Lactate Dehydrogenase 563 Vitamin B12 757 Folate > 20.0 H 01/19/18 01/19/18 01/19/18 05:01 05:01 07:52 WBC 2.6 L Plt Count 59 L APTT 23.5 L Fibrinogen 314 Total Bilirubin 0.80 AST 106 H ALT 124 H Alkaline Phosphatase 50 Lactate Dehydrogenase Vitamin B12 Folate 01/20/18 01/20/18 05:41 05:41 WBC 2.1 L Plt Count 45 L APTT Fibrinogen Total Bilirubin 1.30 AST 79 H ALT 100 H Alkaline Phosphatase 53 Lactate Dehydrogenase Vitamin B12 Folate - Time Spent With Patient Total time spent is greater than 50% in coordination of care (as documented) at patient's floor/unit and/or counseling patient: 25 - 35 minutes
[2018-01-20] MEDS: GABAPENTIN 600 MG TABLET PO SCH ×2 (12:59→22:49)
[2018-01-20 14:08] VITALS: BMI 28.1
--- NOTE | 2018-01-20 14:30 | Progress Note ---
- Date 01/20/18 Subjective: Patient is seen in his room after lunch. He denies CP, SOA, abd pain, n/v/f/c. He appears confused. Does not talk to me other than to answer yes/no questions. Objective Vital signs: Temperature 96.5 F L 01/20/18 07:39 Pulse Rate 95 01/20/18 07:39 Respiratory Rate 22 01/20/18 07:39 Blood Pressure 128/81 01/20/18 07:39 Pulse Oximetry 95 01/20/18 07:39 Height/Weight/BMI: Height 1.63 m Weight 74.4 kg Body Mass Index 28.1 - Constitutional Present: no acute distress, well nourished, well developed - Routine HEENT Exam Head: Present: normocephalic, atraumatic Comments: dried blood to R side of pt's mouth. Pt not cooperative with opening mouth for further exam. - Routine Respiratory Exam Present: decreased breath sounds, CTA bilaterally. Absent: wheezes - Routine Cardiovascular Exam Present: RRR, murmur - Routine Abdominal Exam Present: soft, non distended, non tender - Routine Extremities Exam Present: no edema, normal capillary refill - Routine Skin Exam Present: dry, warm - Routine Neurological Exam Present: alert, moving all extremities - Routine Lymphatic Exam Lymphatic: Absent: adenopathy - Routine Psychiatric Exam Present: unable to assess Results - Labs CBC & Chem 7: 01/20/18 05:41 01/20/18 05:41 Labs: Laboratory Tests 01/20/18 05:41 AST 79 H ALT 100 H Assessment and Plan (1) Thrombocytopenia Current visit: Yes Status: Acute Assessment and Plan: Assessment Pancytopenia with profound thrombocytopenia. Mild transaminitis. Elevated BUN, reported history of possible rectal bleed. Stool heme positive Hyponatremia, present on admission Stage III chronic kidney disease. History of stroke. Dementia. CAD. Diastolic CHF. Peripheral vascular disease. Mitral valve and aortic valve sclerosis. Hypertension. Rheumatoid arthritis. GERD Hypothyroidism. Chronic anemia Depression. Spinal stenosis. Type 2 diabetes with neuropathy. Dysphagia. Chronic pain syndrome. Hypothyroidism. Macular degeneration. Plan Dr. Ramsey following. Peripheral smear, lupus studies and thrombotic panel are pending. S/p 1 leuko-reduced irradiated plateletpheresis pack on 01/18/18. Platelets 73--> 59-->45K. Per Dr. Ramsey's note - "transfuse if <20K w/ increased PTT" Plaquenil & MTX remain on hold. Methotrexate level at <0.04 today. Continues on Leucovorin. LFT's improving. CMP in am. Per oncology note "leucovorin until methotrexate level less than 0.01." Hgb is stable despite black stools reported yesterday and today and + hemoccult. Continue to monitor. CBC in am. Continue IVF as he is not taking much po. BS was 65 this am and pt ate very little breakfast, thus Januvia was held. VSS DVT Prophylaxis: SCD's Resuscitation Status: Do Not Resuscitate - Physician Narrative Physician: Altagracia Madrigal MD Narrative: Date: 01/20/18 Time: 2200 I have independently evaluated and examined this patient. I reviewed the chart, the patient's history, and the [employer]/PA's documented findings as above. We discussed and formulated the assessment and plan as above with additions as below: Jt was seen this morning and did not respond to questions; nursing report minimal oral intake and black stools earlier today. NAD, extensive peripheral bruising Respirations nonlabored, harsh 2/6 systolic ejection murmur Slow drifting platelet count, methotrexate level down to nondetectable level per today's report Discussed with Dr. Ramsey-continue leucovorin at least one additional day; liver enzymes improving-consistent with methotrexate toxicity. Will not repeat methotrexate level-as low as lab will report. Repeat PTT in a.m.; given 1 normal study I don't believe additional coag studies are needed. Initiate nutritional supplements Hospital Course Summary Disclaimer: The visit summary below is not to be considered part of the above Progress Note. Hospital Course: 01/18/18 Admit as inpatient under the hospitalist service. Dr. Ramsey has been consulted regarding his pancytopenia and profound thrombocytopenia. Workup has been ordered. Will give 2 leukoreduced irradiated plateletpheresis packs Will hold Plaquenil as this can cause leukopenia and thrombocytopenia. Recent treatment with daily methotrexate-worrisome for methotrexate toxicity, leucovorin initiated pending methotrexate level. Will also hold losartan given his elevated potassium, BUN and reported poor oral intake. Monitor hemoglobin. Will reassess stool for occult blood. Start IV fluids, half-normal saline at 100 mL per hour. long term notes reviewed. He is on a regular diet with thin liquids there, which will be resumed during hospitalization. Monitor blood glucose, and if they run high, we may instead place him on a consistent carbohydrate diet. 01/19/18 Patient continues to demonstrate pancytopenia and FOB is positive. Peripheral smear and thrombotic panel are pending. s/p 1 leukoreduced irradiated plateletpheresis pack Repeat PTT 23.5--suspect elevated PTT yesterday was drawn through a heparinized line. Additional coag studies pending including PTT mixing study. Hemoglobin and platelet count drifting down following transfusion of platelets yesterday, GI blood loss present but not actively bleeding, continue to monitor. Elevated methotrexate level of 0.13-3 days after medication discontinued reported to Dr. Ramsey this morning; continue leucovorin. Probable cause of neutropenia, thrombocytopenia, and liver enzyme abnormalities. Will hold Plaquenil as this can also cause leukopenia and thrombocytopenia. Continue IVF as he still appears a bit dry. long term notes reviewed. He is on a regular diet with thin liquids there, which will be resumed during hospitalization. BG has been stable. 01/20/18 Dr. Ramsey following. Peripheral smear, lupus studies and thrombotic panel are pending. S/p 1 leuko-reduced irradiated plateletpheresis pack on 01/18/18. Platelets 73--> 59-->45K. Per Dr. Ramsey's note - "transfuse if <20K w/ increased PTT" Plaquenil & MTX remain on hold. Methotrexate level at <0.04 today. Continues on Leucovorin. LFT's improving. Hgb is stable despite black stools reported yesterday and today and + hemoccult. Continue to monitor. CBC in am. Continue IVF as he is not taking much po. BS was 65 this am and pt ate very little breakfast, thus Januvia was held.
[2018-01-20] MEDS: DIVALPROEX 500 MG TABLET PO SCH (22:48)
[2018-01-20] MEDS: FAMOTIDINE 20 MG TABLET PO SCH (22:48)
[2018-01-21] MEDS: LEUCOVORIN IV SCH ×4 (01:24→19:00)
[2018-01-21] MEDS: NS IV SCH ×4 (01:24→19:00)
[2018-01-21] MEDS: 1/2 NS 1,000 ML IV SCH ×4 (02:37→23:34)
[2018-01-21] MEDS: LEVOTHYROXINE 125 MCG TABLET PO SCH (07:43)
[2018-01-21] MEDS: SERTRALINE 100 MG TABLET PO SCH (09:47)
[2018-01-21] MEDS: HYDROCODONE/APAP 7.5 MG/325 MG TABLET PO SCH ×3 (09:47→20:07)
[2018-01-21] MEDS: DIVALPROEX 250 MG TABLET PO SCH (09:47)
[2018-01-21] MEDS: Bisacodyl EC TAB 5 MG TABLET PO SCH ×2 (09:47→20:00)
[2018-01-21] MEDS: GABAPENTIN 300 MG CAPSULE PO SCH (09:47)
[2018-01-21] MEDS: SITAGLIPTIN 100 MG TABLET PO SCH (09:47)
[2018-01-21] MEDS: HYDRALAZINE 25 MG TABLET PO SCH ×3 (09:47→17:00)
[2018-01-21] MEDS: LABETALOL 100 MG TABLET PO SCH (09:48)
[2018-01-21] MEDS: FOLIC ACID 1 MG TABLET PO SCH (09:48)
[2018-01-21] MEDS: PredniSONE 10 MG TABLET PO SCH (09:48)
[2018-01-21] MEDS: GABAPENTIN 600 MG TABLET PO SCH ×2 (12:38→20:08)
--- NOTE | 2018-01-21 13:38 | CT Scan Report ---
Indication: AMS, thrombocytopenia PROCEDURE: CT head/brain wo con: Encounter: Initial Comparison: January 17, 2016 Technique: Axial CT images through the head were performed without contrast. Iterative Reconstruction dose reducing technique was utilized. FINDINGS: Moderate atrophy. Old left frontal lobe infarct with encephalomalacia. The ventricles are stable. There are scattered areas of low attenuation in the white matter which most likely represent changes from chronic microvascular ischemia. The brainstem, cerebellum, and cerebral hemispheres otherwise have a normal morphology and CT attenuation. There is no evidence of midline displacement. No hemorrhage, signs of acute territorial stroke, mass effect, mass lesions, or edema is evident. The visualized portions of the skull base, midface, and calvarium demonstrate no abnormality. The paranasal sinuses are well aerated and free of significant disease. The tympanic and mastoid cavities appear normal. IMPRESSION: No acute intracranial abnormality or hemorrhage. .
--- NOTE | 2018-01-21 15:43 | Progress Note ---
<Catalina Romero L - Last Filed: 01/21/18 15:40> Oncology Subjective Reclining in hospital bed. Opens eyes when spoken to. No verbal response. Patient would not open mouth to examine for mucositis. Unable to obtain review of system. Exam Vital signs: Temperature 98.1 F 01/21/18 15:31 Pulse Rate 78 01/21/18 15:31 Respiratory Rate 20 01/21/18 15:31 Blood Pressure 127/62 01/21/18 15:31 Pulse Oximetry 97 01/21/18 15:31 Narrative: Acetaminophen (Tylenol) 325 - 650 mg PO Q5H PRN PRN Reason: Discomfort Hydrocodone Bitart/Acetaminophen ([place] 7.5/325) 1 tab PO TID [facility] Last Admin: 01/21/18 15:08 Dose: Not Given Bisacodyl (Dulcolax) 5 mg PO BID [facility] Last Admin: 01/21/18 09:47 Dose: 5 mg Bisacodyl (Dulcolax) 10 mg RECTALLY DAILY PRN PRN Reason: Constipation Divalproex Sodium (Depakote) 250 mg PO QAM [facility] Last Admin: 01/21/18 09:47 Dose: 250 mg Divalproex Sodium (Depakote) 500 mg PO HS [facility] Last Admin: 01/20/18 22:48 Dose: 500 mg Famotidine (Pepcid) 20 mg PO HS [facility] Last Admin: 01/20/18 22:48 Dose: 20 mg Folic Acid (Folate) 1 mg PO DAILY [facility] Last Admin: 01/21/18 09:48 Dose: 1 mg Gabapentin (Neurontin) 300 mg PO QAM [facility] Last Admin: 01/21/18 09:47 Dose: 300 mg Gabapentin (Neurontin) 600 mg PO 1200,2100 [facility] Last Admin: 01/21/18 12:38 Dose: Not Given Hydralazine HCl (Apresoline) 25 mg PO WM [facility] Last Admin: 01/21/18 12:38 Dose: Not Given Sodium Chloride (1/2 Normal Saline) 1,000 mls @ 100 mls/hr IV .Q10H [facility] Last Admin: 01/21/18 12:37 Dose: 100 mls/hr Leucovorin Calcium 25 mg/ (Sodium Chloride) 25 mls @ 150 mls/hr IV Q6H [facility] Last Infusion: 01/21/18 13:55 Dose: Infused Labetalol HCl (Normodyne) 200 mg PO DAILY [facility] Last Admin: 01/21/18 09:48 Dose: 200 mg Levothyroxine Sodium (Synthroid) 125 mcg PO ACB [facility] Last Admin: 01/21/18 07:43 Dose: 125 mcg Ondansetron HCl (Zofran) 4 mg IVP Q6H PRN PRN Reason: Nausea &/or vomiting Polyethylene Glycol (Miralax) 17 gm PO DAILY PRN Prednisone (Deltasone 10 Mg) 10 mg PO WB [facility] Last Admin: 01/21/18 09:48 Dose: 10 mg Senna/Docusate Sodium (Senna Plus Tablet) 1 tab PO BID PRN PRN Reason: Constipation Sertraline HCl (Zoloft) 100 mg PO DAILY [facility] Last Admin: 01/21/18 09:47 Dose: 100 mg Sitagliptin Phosphate (Januvia) 50 mg PO DAILY [facility] Last Admin: 01/21/18 09:47 Dose: 50 mg Sodium Chloride (Iv Flush) 10 - 80 ml IVF PRN PRN PRN Reason: Flushing Last Admin: 01/18/18 11:52 Dose: 10 ml Sodium Chloride (Normal Saline) 500 ml IV PRN PRN - Constitutional no acute distress, cooperative - Routine HEENT Exam Head: Present: normocephalic Eye: Present: EOMI - Routine Neck Exam Present: supple. Absent: lymphadenopathy - Routine Respiratory Exam Present: decreased breath sounds. Absent: wheezes, crackles - Routine Cardiovascular Exam Present: RRR, murmur - Routine Abdominal Exam Present: soft, non tender. Absent: mass - Routine Extremities Exam Present: no edema, full ROM - Routine Skin Exam Present: dry, pallor, ecchymosis (bilateral upper arms with scattered ecchymosis , no petechiae.). Absent: petechiae - Routine Neurological Exam Present: alert, altered mental status, moving all extremities - Routine Psychiatric Exam Present: unable to assess Oncology Results - Labs CBC & Chem 7: 01/21/18 06:17 01/21/18 07:40 Labs: Short CBC 01/21/18 Range/Units 06:17 WBC 1.2 L* D (4.5-11.0) T/MM3 Hgb 9.9 L (13.5-17.5) GM/DL Hct 28.8 L (41-53) % Plt Count 38 L (130-400) T/MM3 BMP 01/21/18 07:40 Sodium 142 Potassium 4.1 Chloride 114 H Carbon Dioxide 20 L BUN 21.0 H Creatinine 1.0 Glucose 79 Calcium 8.3 L Liver Function 01/21/18 Range/Units 07:40 Total Bilirubin 1.00 (0.20-1.30) MG/DL AST 53 (17-59) U/L ALT 69 H (1-50) U/L Alkaline Phosphatase 47 (38-126) U/L Albumin 2.9 L (3.5-5.0) g/dL Assessment and Plan Assessment and Plan: 1. Pancytopenia with white count of 2.2, normal differential platelet count of 8000 and hemoglobin of 11.2 with reticulocyte count that's very low at 0.3%. LDH is normal at 568. This patient has rheumatoid arthritis and is currently on methotrexate 2.5 mg daily he has chronic renal insufficiency. This is most likely secondary to either build up of MTX with store in ascites or pleural effusion. Methotrexate level at admission was 0.13. This is 3 days after discontinuation of the methotrexate. Methotrexate level 01/20/18 is < 0.04. 2. Prolonged PTT of uncertain etiology. This could be secondary to lupus anticoagulant, acquired inhibitor of factor VIII, factor VIII deficiency. Will obtain factor VIII level and factor VIII inhibitor level along with mixing study and lupus anticoagulant. 3. RA on Prednisone, Hydroxychloraquine and Methotrexate 4. 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 5. CAD. 6. Elevated liver functions probably secondary to methotrexate 7. Peripheral vascular disease. 8. Mitral valve and aortic valve sclerosis. 9. GERD 10. Hypothyroidism. 11. Chronic anemia 12 Type 2 diabetes with neuropathy. Plan Leucovorin discontinued today. Persistent pancytopenia, but stable per Dr. Villalta. Continue supportive care; follow counts. - Time Spent With Patient Total time spent is greater than 50% in coordination of care (as documented) at patient's floor/unit and/or counseling patient: less than 15 minutes <Ilene Villalta - Last Filed: 01/21/18 21:40> Exam Vital signs: Temperature 98.1 F 01/21/18 15:31 Pulse Rate 78 01/21/18 15:31 Respiratory Rate 20 01/21/18 15:31 Blood Pressure 127/62 01/21/18 15:31 Pulse Oximetry 94 01/21/18 17:52 Oncology Results - Labs CBC & Chem 7: 01/21/18 06:17 01/21/18 07:40 Labs: Short CBC 01/21/18 Range/Units 06:17 WBC 1.2 L* D (4.5-11.0) T/MM3 Hgb 9.9 L (13.5-17.5) GM/DL Hct 28.8 L (41-53) % Plt Count 38 L (130-400) T/MM3 BMP 01/21/18 07:40 Sodium 142 Potassium 4.1 Chloride 114 H Carbon Dioxide 20 L BUN 21.0 H Creatinine 1.0 Glucose 79 Calcium 8.3 L Liver Function 01/21/18 Range/Units 07:40 Total Bilirubin 1.00 (0.20-1.30) MG/DL AST 53 (17-59) U/L ALT 69 H (1-50) U/L Alkaline Phosphatase 47 (38-126) U/L Albumin 2.9 L (3.5-5.0) g/dL Assessment and Plan - Time Spent With Patient Total time spent is greater than 50% in coordination of care (as documented) at patient's floor/unit and/or counseling patient:
[2018-01-21] MEDS: FAMOTIDINE 20 MG TABLET PO SCH (20:07)
--- NOTE | 2018-01-21 21:07 | Progress Note ---
- Date 01/21/18 Subjective: Jt was seen this morning and reported that he wants "this cage down" indicating the side rail. He could not identify what he intended to do once the Cipro was down other than wanting out of bed. He denied dyspnea or pain. I was called urgently to the bedside a little after noon when the patient became abruptly unresponsive after vomiting twice. Nursing indicated he ate a little bit of breakfast this morning and had behaved normally until having 2 episodes of incontinence stools followed by vomiting twice; he was described as looking pale, oxygen saturation 89% on room air, minimally responsive/limp. Objective Vital signs: Temperature 98.1 F 01/21/18 15:31 Pulse Rate 78 01/21/18 15:31 Respiratory Rate 20 01/21/18 15:31 Blood Pressure 127/62 01/21/18 15:31 Pulse Oximetry 94 - RA 01/21/18 17:52 Early this morning patient was more talkative than prior days; dried blood again noted on patient's lips Reevaluated at 12:30 patient was minimally responsive to voice Pupils equal ~3 mm, facial structure symmetric Withdraws all 4 extremities to painful stimulation; began moving spontaneously after 2-3 minutes with symmetric motor activity Respirations nonlabored but diminished airflow, breath sounds clear anteriorly Regular rhythm with harsh systolic murmur Extensive bruising on extremities as seen prior days Height/Weight/BMI: Height 1.63 m Weight 72.9 kg Body Mass Index 28.1 Results - Labs CBC & Chem 7: 01/21/18 06:17 01/21/18 07:40 Labs: S20 B2 L48 E30 Liver enzymes have normalized with the exception of minimal increased ALT of 69 - ABG Interpretation Attestation: I reviewed and interpreted this ABG. (hypoxia, hyperventilating) ABG results: 01/21/18 12:50 ABG pH 7.423 ABG pCO2 29 L ABG pO2 70.5 L ABG HCO3 19.0 L ABG Total CO2 19.9 L ABG O2 Saturation 94.6 L ABG Base Excess -4.7 L - Imaging and Cardiology CT scan - head Status: image reviewed by me (old left frontal infarct/encephalomalacia; white matter ischemic changes in the periventricular areas. No evidence of hemorrhage or acute change.) Assessment and Plan (1) Thrombocytopenia Current visit: Yes Status: Acute Assessment and Plan: Assessment Pancytopenia with profound thrombocytopenia. Mild transaminitis. Methotrexate toxicity Elevated BUN, reported history of possible rectal bleed-resolved Stool heme positive Nausea/vomiting-01/21 Syncope-01/21 Stage III chronic kidney disease. History of stroke. Dementia. CAD. Diastolic CHF. Peripheral vascular disease. Mitral valve and aortic valve sclerosis. Hypertension. Rheumatoid arthritis. GERD Hypothyroidism. Chronic anemia Depression. Spinal stenosis. Type 2 diabetes with neuropathy. Dysphagia. Chronic pain syndrome. Hypothyroidism. Macular degeneration. Plan Dr. Ramsey following. Neutropenia worsening, slow drift down in platelet count after platelet transfusion on date of admission. S/p 1 leuko-reduced irradiated plateletpheresis pack on 01/18/18. Platelets 73--> 59-->45--> 38K. Discussed with Dr. Villalta today, continue oral folic acid. Leucovorin discontinued. Methotrexate discontinued a couple of days prior to hospitalization but level remained toxic on admission. Plaquenil & MTX remain on hold. Hold Depakote due to pancytopenia. Continue to monitor counts daily-all drifting down. Black stools reported prior days however today patient had brown stools. Poor oral intake-spoke with patient's daughter today and she indicates this preceded hospitalization. Continue IVF due to poor oral intake. Blood sugars stable, blood pressure stable. Januvia on hold. Daughter updated-confirms DO NOT RESUSCITATE. - Physician Narrative Narrative: Date: 01/21/18 Time: 2101 Hospital Course Summary Disclaimer: The visit summary below is not to be considered part of the above Progress Note. Hospital Course: 01/18/18 Admit as inpatient under the hospitalist service. Dr. Ramsey has been consulted regarding his pancytopenia and profound thrombocytopenia. Workup has been ordered. Will give 2 leukoreduced irradiated plateletpheresis packs Will hold Plaquenil as this can cause leukopenia and thrombocytopenia. Recent treatment with daily methotrexate-worrisome for methotrexate toxicity, leucovorin initiated pending methotrexate level. Will also hold losartan given his elevated potassium, BUN and reported poor oral intake. Monitor hemoglobin. Will reassess stool for occult blood. Start IV fluids, half-normal saline at 100 mL per hour. long term notes reviewed. He is on a regular diet with thin liquids there, which will be resumed during hospitalization. Monitor blood glucose, and if they run high, we may instead place him on a consistent carbohydrate diet. 01/19/18 Patient continues to demonstrate pancytopenia and FOB is positive. Peripheral smear and thrombotic panel are pending. s/p 1 leukoreduced irradiated plateletpheresis pack Repeat PTT 23.5--suspect elevated PTT yesterday was drawn through a heparinized line. Additional coag studies pending including PTT mixing study. Hemoglobin and platelet count drifting down following transfusion of platelets yesterday, GI blood loss present but not actively bleeding, continue to monitor. Elevated methotrexate level of 0.13-3 days after medication discontinued reported to Dr. Ramsey this morning; continue leucovorin. Probable cause of neutropenia, thrombocytopenia, and liver enzyme abnormalities. Will hold Plaquenil as this can also cause leukopenia and thrombocytopenia. Continue IVF as he still appears a bit dry. long term notes reviewed. He is on a regular diet with thin liquids there, which will be resumed during hospitalization. BG has been stable. 01/20/18 Dr. Ramsey following. Peripheral smear, lupus studies and thrombotic panel are pending. S/p 1 leuko-reduced irradiated plateletpheresis pack on 01/18/18. Platelets 73--> 59-->45K. Per Dr. Ramsey's note - "transfuse if <20K w/ increased PTT" Plaquenil & MTX remain on hold. Methotrexate level at <0.04 today. Continues on Leucovorin. LFT's improving. Hgb is stable despite black stools reported yesterday and today and + hemoccult. Continue to monitor. CBC in am. Continue IVF as he is not taking much po. BS was 65 this am and pt ate very little breakfast, thus Januvia was held. 01/21/18 Dr. Ramsey following. Neutropenia worsening, slow drift down in platelet count after platelet transfusion on date of admission. S/p 1 leuko-reduced irradiated plateletpheresis pack on 01/18/18. Platelets 73--> 59-->45--> 38K. Discussed with Dr. Villalta today, continue oral folic acid. Leucovorin discontinued. Methotrexate discontinued a couple of days prior to hospitalization but level remained toxic on admission. Plaquenil & MTX remain on hold. Hold Depakote due to pancytopenia. Continue to monitor counts daily-all drifting down. Black stools reported prior days however today patient had brown stools. Poor oral intake-spoke with patient's daughter today and she indicates this preceded hospitalization. Continue IVF due to poor oral intake. Blood sugars stable, blood pressure stable. Januvia on hold.
[2018-01-21] MEDS: DIVALPROEX 500 MG TABLET PO SCH (21:09)
[2018-01-22] MEDS: NS IV SCH ×2 (01:27→07:33)
[2018-01-22] MEDS: LEUCOVORIN IV SCH ×2 (01:27→07:33)
[2018-01-22] MEDS ORDERED: FUROSEMIDE 20 MG/2 ML INJECTION IVP ONE (02:08)
[2018-01-22] MEDS ORDERED: 1/2 NS 1,000 ML IV SCH (02:30)
[2018-01-22] MEDS: LEVOTHYROXINE 125 MCG TABLET PO SCH (07:04)
[2018-01-22] MEDS: HYDROCODONE/APAP 7.5 MG/325 MG TABLET PO SCH ×2 (08:51→14:59)
[2018-01-22] MEDS: GABAPENTIN 300 MG CAPSULE PO SCH (08:51)
[2018-01-22] MEDS: Bisacodyl EC TAB 5 MG TABLET PO SCH (08:51)
[2018-01-22] MEDS: HYDRALAZINE 25 MG TABLET PO SCH ×3 (08:51→17:34)
[2018-01-22] MEDS: FOLIC ACID 1 MG TABLET PO SCH (08:51)
[2018-01-22] MEDS: LABETALOL 100 MG TABLET PO SCH (08:51)
[2018-01-22] MEDS: PredniSONE 10 MG TABLET PO SCH (08:51)
[2018-01-22] MEDS: SITAGLIPTIN 100 MG TABLET PO SCH (08:52)
[2018-01-22] MEDS: SERTRALINE 100 MG TABLET PO SCH (08:52)
--- NOTE | 2018-01-22 10:05 | XRay Report ---
Indication: dyspnea PROCEDURE: XR chest 1V: Encounter: Initial Comparison: January 17, 2016 Findings: Lungs remain hypoinflated. Right lower lobe granuloma. Mild diffuse interstitial prominence. No obvious pleural effusion. No pneumothorax. Heart size and mediastinal contours are stable. Prior CABG. Impression: Chronic hypoinflation with mild pulmonary edema. .
[2018-01-22] MEDS ORDERED: VANCOMYCIN - PHARMACY CONSULT MC ONE (10:56)
[2018-01-22] MEDS: CEFEPIME 2 GM in NS 100 ML IV SCH ×2 (11:08→18:34)
[2018-01-22] MEDS ORDERED: LEVOFLOXACIN PB 750 MG/150 ML BAG IV SCH (11:30)
--- NOTE | 2018-01-22 11:49 | Pharmacy Consult-Antibiotics ---
Pharmacy Consult-Vancomycin - Laboratory Information WBC 0.3 T/MM3 (4.5-11.0) L* D 01/22/18 05:42 BUN 20.0 MG/DL (9-20) 01/22/18 05:42 Creatinine 1.4 mg/dL (0.8-1.5) D 01/22/18 05:42 - Consult Information Vancomycin consult noted by Dr Clemente for Mr Ulysses, who is 82 yo and weighs 72.3kg. His serum creatinine is 1.4 mg/dl. Vancomycin 1250mg loading dose is ordered followed by vancomycin 1000mg IV q18h. Will continue to monitor. Thank you.
--- NOTE | 2018-01-22 12:36 | XRay Report ---
Indication: picc line placement PROCEDURE: XR chest 1V: Encounter: Initial Comparison: January 22, 2018 at 0914 Findings: New right PICC line in place with the tip projecting over the right atrium. Lung pearl are stable. No pneumothorax. Heart size and mediastinal contours are unchanged. Impression: New right PICC line tip projects over the right atrium. .
[2018-01-22] MEDS: GABAPENTIN 600 MG TABLET PO SCH (12:56)
--- NOTE | 2018-01-22 13:49 | Progress Note ---
Oncology Subjective Patient nonresponsive. More sedated than yesterday. Hypotensive. Patient going to be moved to the unit. View of systems not obtainable secondary to mental status. Exam Vital signs: Temperature 97.2 F 01/22/18 13:41 Pulse Rate 116 H 01/22/18 13:41 Respiratory Rate 40 H 01/22/18 13:41 Blood Pressure 106/60 01/22/18 13:41 Pulse Oximetry 93 01/22/18 13:41 - Constitutional moderate distress - Routine HEENT Exam Head: Present: normocephalic - Routine Respiratory Exam Present: accessory muscle use (more mouth breathing). Absent: CTA bilaterally ( few rales in the right base) - Routine Cardiovascular Exam Present: RRR, tachycardia - Routine Abdominal Exam Present: soft, non distended, non tender - Routine Skin Exam Present: dry, warm, ecchymosis - Routine Neurological Exam Absent: alert - Routine Psychiatric Exam Absent: normal thought process Oncology Results - Labs CBC & Chem 7: 01/22/18 16:00 01/22/18 05:42 Labs: Short CBC 01/22/18 Range/Units 05:42 WBC 0.3 L* D (4.5-11.0) T/MM3 Hgb 10.4 L (13.5-17.5) GM/DL Hct 31.0 L (41-53) % Plt Count 24 L* D (130-400) T/MM3 BMP 01/22/18 05:42 Sodium 139 Potassium 3.3 L D Chloride 109 H Carbon Dioxide 20 L BUN 20.0 Creatinine 1.4 D Glucose 108 Calcium 8.2 L Laboratory Tests 01/21/18 01/22/18 01/22/18 07:40 05:40 05:42 WBC 0.3 L* D Hgb 10.4 L Plt Count 24 L* D Neutrophils % (Manual) 23.0 L Band Neutrophils % 11.0 H Lymphocytes % (Manual) 49.0 H Monocytes % (Manual) 6.0 Eosinophils % (Manual) 11.0 H Neutrophils # (Manual) 0.1 L Creatinine 1.0 Procalcitonin 10.88 H* 01/22/18 05:42 WBC Hgb Plt Count Neutrophils % (Manual) Band Neutrophils % Lymphocytes % (Manual) Monocytes % (Manual) Eosinophils % (Manual) Neutrophils # (Manual) Creatinine 1.4 D Procalcitonin Assessment and Plan Assessment and Plan: 1. Pancytopenia with white count of 2.2, normal differential platelet count of 8000 and hemoglobin of 11.2 with reticulocyte count that's very low at 0.3%. LDH is normal at 568 on admission. This patient has rheumatoid arthritis and was on methotrexate 2.5 mg daily until 01/14/18. He has chronic renal insufficiency. This is most likely secondary to either build up of MTX with store in ascites or pleural effusion. Methotrexate level at admission was 0.13. This is 3 days after discontinuation of the methotrexate. Methotrexate level 04/01 is < 0.04. WBC and platelets have continued decreased. WBC on 01/22/18 is 300 and platelets are 24,000. G-CSF is started. Patient is febrile and has elevated pro-calcitonin, respiratory alkalosis and vomited with possible aspiration last evening. He has presumed sepsis and have discussed with Dr. Clemente. Cultures have been obtained. Antibiotics have been initiated. Patient will be moved to ICU for support and possible pressors. 2. Prolonged PTT of uncertain etiology. This could be secondary to lupus anticoagulant, acquired inhibitor of factor VIII, factor VIII deficiency. Will obtain factor VIII level and factor VIII inhibitor level along with mixing study and lupus anticoagulant. 3. RA on Prednisone, Hydroxychloraquine and Methotrexate. Will probably need to cover with stress doses steroids. 4. 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 5. CAD. 6. Elevated liver functions probably secondary to methotrexate improving 7. Peripheral vascular disease. 8. Mitral valve and aortic valve sclerosis. 9. GERD 10. Hypothyroidism. 11. Chronic anemia 12 Type 2 diabetes with neuropathy. Plan Leucovorin was discontinued on 01/21. Currently with neutropenia, presumed sepsis. We'll need antibiotics, steroids and G-CSF. Follow platelets and if platelets less than 20 K Will need transfusion. - Time Spent With Patient Total time spent is greater than 50% in coordination of care (as documented) at patient's floor/unit and/or counseling patient: less than 15 minutes
[2018-01-22] MEDS ORDERED: VASOPRESSIN IV SCH (13:56)
[2018-01-22] MEDS ORDERED: NS IV SCH (13:56)
[2018-01-22] MEDS ORDERED: HYDROCORTISONE SOD SUCC 100mg/2ml INJECTION IVP SCH (15:00)
--- NOTE | 2018-01-22 15:26 | Progress Note ---
- Date 01/22/18 Subjective: Called to the medical floor. Patient was found unresponsive today and blood pressure was 70s/50s. Nursing reports patient have been more responsive yesterday and had transient temperature of 100.7F overnight. The repeat temperature at 730 is also elevated above 101 Objective Vital signs: Temperature 97.2 F 01/22/18 13:41 Pulse Rate 116 H 01/22/18 13:41 Respiratory Rate 40 H 01/22/18 13:41 Blood Pressure 106/60 01/22/18 13:41 Pulse Oximetry 93 01/22/18 13:41 Rhythm: Sinus Tachycardia Height/Weight/BMI: Height 5 ft 4 in Weight 72.3 kg Body Mass Index 28.1 - Constitutional Present: obtunded - Routine HEENT Exam Head: Present: normocephalic, atraumatic Eye: Present: normal accommodation ENT: Present: mucous membranes moist, dentition normal - Routine Respiratory Exam Present: crackles. Absent: wheezes - Routine Cardiovascular Exam Present: RRR, tachycardia. Absent: murmur - Routine Abdominal Exam Present: soft, normoactive bowel sounds, non distended. Absent: tenderness - Routine Extremities Exam Present: extremity cold to touch. Absent: normal capillary refill - Routine Skin Exam Present: dry, pallor. Absent: warm - Routine Neurological Exam Absent: alert - Routine Lymphatic Exam Lymphatic: Absent: adenopathy - Routine Psychiatric Exam Present: unable to assess Results - Labs CBC & Chem 7: 01/22/18 16:00 01/22/18 05:42 Microbiology Results: Microbiology 01/22/18 13:13 Port/Picc Blood Culture - Preliminary Culture Initiated - Results Pending 01/22/18 12:16 Peripheral/Iv Start Blood Culture - Preliminary Culture Initiated - Results Pending - ABG Interpretation ABG results: 01/21/18 12:50 ABG pH 7.423 ABG pCO2 29 L ABG pO2 70.5 L ABG HCO3 19.0 L ABG Total CO2 19.9 L ABG O2 Saturation 94.6 L ABG Base Excess -4.7 L Assessment and Plan (1) Neutropenic sepsis Current visit: Yes Status: Suspected (2) Thrombocytopenia Current visit: Yes Status: Acute (3) Pancytopenia Current visit: Yes Status: Acute (4) Infectious encephalopathy Current visit: Yes Status: Acute (5) Adverse effect of methotrexate Current visit: Yes Status: Acute Assessment and Plan: Assessment suspected neutropenia sepsis acute encephalopathy Pancytopenia with profound thrombocytopenia. Mild transaminitis. Methotrexate toxicity Elevated BUN, reported history of possible rectal bleed-resolved Stool heme positive Nausea/vomiting-01/21 Syncope-01/21 Stage III chronic kidney disease. History of stroke. Dementia. CAD. Diastolic CHF. Peripheral vascular disease. Mitral valve and aortic valve sclerosis. Hypertension. Rheumatoid arthritis. GERD Hypothyroidism. Chronic anemia Depression. Spinal stenosis. Type 2 diabetes with neuropathy. Dysphagia. Chronic pain syndrome. Hypothyroidism. Macular degeneration. Plan Mr. Arora was 82-year-old man who had been admitted with severe pancytopenia G.I. bleed. It appears that he has been on methotrexate until several days prior to admission. He arrived with hyper therapeutic level of methotrexate still in system and a near absent platelet and a low white blood cell count. He was placed under reverse isolation for his neutropenia. The patient was given an initial unit platelets and he was responsive to this but white blood cell count continued to fall. On my arrival and first seeing him in this morning, patient had systolic blood pressure 70s/50s with new morning fevers. He was unresponsive to moderate stimuli. Physical exam revealed a right lateral crackle on auscultation of the chest and nursing noted that he had had an episode of emesis the night prior. Platelets had fallen again. I ordered another unit platelets and 2 separate 500 mg boluses of normal saline which she was initially responsive to. Chest x-ray showed no acute infiltrator obvious fluid overload. This was an expiratory film and limited as a portable. Blood cultures were drawn and a pro-calcitonin level that day was 10. Dr. Ramsey had seen and was suspecting neutropenia sepsis. After discussion, patient was started on vancomycin Levaquin and high-dose cefepime. The patient's daughter and DPOA had voicemails left prior to noon. Patient's midline was converted to a PICC line. By midafternoon the patient's blood pressure had again fallen and patient was sent to the ICU to be started on vasopressin. No further fluid challenge was given as the patient had very recently become fluid overloaded and required diaphoresis until yesterday. The vasopressin was tapered up throughout the course of the day to maintain mean arterial pressure of 65 or better. The patient's oxygen need had increased steadily throughout the course the day from an initial 2 L overnight to requiring high flow and thus being converted over to a noninvasive BiPAP. I was able to speak to the deep POA directly sometime between 4 and 5 PM. She was in [place] at this time. By 6 PM the vasopressin had been maximized and patient was started on dopamine as a 2nd line medication. Dopamine had run for only 15 or 20 minutes and the patient suddenly became Bradycardic in the 50s and dopamine was increased to 10 g and the patient became asystolic moments after. 80 minutes of critical care time performed up to this point without procedures Respiration heart function and pupillary reflex where confirmation of the patient's clinical demise. At the time of dictation family has not yet arrived. Resuscitation Status: Do Not Resuscitate - Physician Narrative Narrative: Date: 01/22/18 Time: 1521 Sepsis Assessment - Evaluation SIRS Criteria: WBC < 4,000 Severe Sepsis: hypotension (SBP <90 or MAP <65 x2 readings), platelet count < 100,000 Hospital Course Summary Disclaimer: The visit summary below is not to be considered part of the above Progress Note. Hospital Course: 01/18/18 Admit as inpatient under the hospitalist service. Dr. Ramsey has been consulted regarding his pancytopenia and profound thrombocytopenia. Workup has been ordered. Will give 2 leukoreduced irradiated plateletpheresis packs Will hold Plaquenil as this can cause leukopenia and thrombocytopenia. Recent treatment with daily methotrexate-worrisome for methotrexate toxicity, leucovorin initiated pending methotrexate level. Will also hold losartan given his elevated potassium, BUN and reported poor oral intake. Monitor hemoglobin. Will reassess stool for occult blood. Start IV fluids, half-normal saline at 100 mL per hour. intermediate notes reviewed. He is on a regular diet with thin liquids there, which will be resumed during hospitalization. Monitor blood glucose, and if they run high, we may instead place him on a consistent carbohydrate diet. 01/19/18 Patient continues to demonstrate pancytopenia and FOB is positive. Peripheral smear and thrombotic panel are pending. s/p 1 leukoreduced irradiated plateletpheresis pack Repeat PTT 23.5--suspect elevated PTT yesterday was drawn through a heparinized line. Additional coag studies pending including PTT mixing study. Hemoglobin and platelet count drifting down following transfusion of platelets yesterday, GI blood loss present but not actively bleeding, continue to monitor. Elevated methotrexate level of 0.13-3 days after medication discontinued reported to Dr. Ramsey this morning; continue leucovorin. Probable cause of neutropenia, thrombocytopenia, and liver enzyme abnormalities. Will hold Plaquenil as this can also cause leukopenia and thrombocytopenia. Continue IVF as he still appears a bit dry. intermediate notes reviewed. He is on a regular diet with thin liquids there, which will be resumed during hospitalization. BG has been stable. 01/20/18 Dr. Ramsey following. Peripheral smear, lupus studies and thrombotic panel are pending. S/p 1 leuko-reduced irradiated plateletpheresis pack on 01/18/18. Platelets 73--> 59-->45K. Per Dr. Ramsey's note - "transfuse if <20K w/ increased PTT" Plaquenil & MTX remain on hold. Methotrexate level at <0.04 today. Continues on Leucovorin. LFT's improving. Hgb is stable despite black stools reported yesterday and today and + hemoccult. Continue to monitor. CBC in am. Continue IVF as he is not taking much po. BS was 65 this am and pt ate very little breakfast, thus Januvia was held. 01/21/18 Dr. Ramsey following. Neutropenia worsening, slow drift down in platelet count after platelet transfusion on date of admission. S/p 1 leuko-reduced irradiated plateletpheresis pack on 01/18/18. Platelets 73--> 59-->45--> 38K. Discussed with Dr. Villalta today, continue oral folic acid. Leucovorin discontinued. Methotrexate discontinued a couple of days prior to hospitalization but level remained toxic on admission. Plaquenil & MTX remain on hold. Hold Depakote due to pancytopenia. Continue to monitor counts daily-all drifting down. Black stools reported prior days however today patient had brown stools. Poor oral intake-spoke with patient's daughter today and she indicates this preceded hospitalization. Continue IVF due to poor oral intake. Blood sugars stable, blood pressure stable. Januvia on hold.
[2018-01-22 16:25] VITALS: TEMP 98.7
[2018-01-22] MEDS ORDERED: DOPamine PREMIX 400 MG/250 ML BAG IV PRN (18:47)
[2018-01-22 19:30] VITALS: BP 55/40; PULSE 0; RESP 0; O2SAT 94
--- NOTE | 2018-01-22 19:43 | Death Note ---
Providers - Provider Primary care physician: Diane Hernandez MD Admitting clinician: Altagracia Madrigal Attending Physician: Chao Clemente Consults: 01/18/18 15:53 Physician Consult [CONS] Routine Consulting Provider: Terry Ramsey Reason For Exam: thrombocytopenia Ordering Provider has Notified Statistics Professor: Yes Comment: i've already discussed w/ him 01/20/18 16:11 Doctor [Physician Consult] [CONS] Routine Consulting Provider: [facility] Reason For Exam: CONTINUED CARE Ordering Provider has Notified Statistics Professor: Yes Pronouncing clinician: Chao Clemente Diagnosis - Contributing Factors (1) Neutropenic sepsis Status: Suspected (2) Infectious encephalopathy Status: Acute (3) Pancytopenia Status: Acute (4) Adverse effect of methotrexate Status: Acute (5) Thrombocytopenia Status: Acute Summary - Date and Time Date of admission: 01/18/18 23:28 Date of : 01/22/18 Time of : 19:06 - Summary Details: Patient sudden decline appears to be secondary to neutropenia sepsis. This will be better confirmed once blood cultures result. - Additional Data Confirmation of as documented by pronouncing clinician: no pulse, no respirations, no heart sounds Family: contacted Attending physician: Chao Clemente MD Was code activated?: No Autopsy requested?: No digital forensics examiner notified?: No Organ bank notified?: No Advance directives: Yes Hospice patient?: No Attestation Narriative - Attestation Attestation Narrative: Mr. Arora was 82-year-old man who had been admitted with severe pancytopenia G.I. bleed. It appears that he has been on methotrexate until several days prior to admission. He arrived with hyper therapeutic level of methotrexate still in system and a near absent platelet and a low white blood cell count. He was placed under reverse isolation for his neutropenia. The patient was given an initial unit platelets and he was responsive to this but white blood cell count continued to fall. On my arrival 1st seeing him in the morning, patient had systolic blood pressure 70s/50s with some new morning fevers. He was unresponsive to moderate stimuli. Physical exam revealed a right lateral crackle on auscultation of the chest and nursing noted that he had had an episode of emesis the night prior. Platelets had fallen again. I ordered a another unit platelets and 2 separate 500 mg boluses of normal saline. Chest x-ray showed no acute infiltrator obvious fluid overload. This was an expiratory film and limited as a portable. Blood cultures were drawn and a pro-calcitonin level that day was 10. Dr. Ramsey had seen and was suspecting neutropenia sepsis. After discussion, patient was started on vancomycin Levaquin and high-dose cefepime. The patient' s daughter and DPOA had voicemails left prior to noon. By midafternoon the patient's blood pressure had again fallen and patient was sent to the ICU to be started on vasopressin. This was tapered up throughout the course of the day to maintain mean arterial pressure of 65 or better. The patient's oxygen need had increased steadily throughout the course the day from an initial 2 L overnight to requiring high flow and thus being converted over to a noninvasive BiPAP. I was able to speak to the deep POA directly sometime between 4 and 5 PM. She was in [place] at this time. By 6 PM the vasopressin had been maximized and patient was started on dopamine as a 2nd line medication. Dopamine had run for only 15 or 20 minutes and the patient became Bradycardic in the 50s and dopamine was increased to 10 g and the patient became asystolic moments after. Respiration heart function and pupillary reflex where confirmation of the patient's clinical demise. At the time of dictation family has not yet arrived. 01/22/18 19:44 01/22/18 19:48 suspected neutropenia sepsis acute encephalopathy Pancytopenia with profound thrombocytopenia. Mild transaminitis. Methotrexate toxicity Elevated BUN, reported history of possible rectal bleed-resolved Stool heme positive Nausea/vomiting-01/21 Syncope-01/21 Stage III chronic kidney disease. History of stroke. Dementia. CAD. Diastolic CHF. Peripheral vascular disease. Mitral valve and aortic valve sclerosis. Hypertension. Rheumatoid arthritis. GERD Hypothyroidism. Chronic anemia Depression. Spinal stenosis. Type 2 diabetes with neuropathy. Dysphagia. Chronic pain syndrome. Hypothyroidism. Macular degeneration. Hospital Course Summary Hospital Course: 01/18/18 Admit as inpatient under the hospitalist service. Dr. Ramsey has been consulted regarding his pancytopenia and profound thrombocytopenia. Workup has been ordered. Will give 2 leukoreduced irradiated plateletpheresis packs Will hold Plaquenil as this can cause leukopenia and thrombocytopenia. Recent treatment with daily methotrexate-worrisome for methotrexate toxicity, leucovorin initiated pending methotrexate level. Will also hold losartan given his elevated potassium, BUN and reported poor oral intake. Monitor hemoglobin. Will reassess stool for occult blood. Start IV fluids, half-normal saline at 100 mL per hour. long-term notes reviewed. He is on a regular diet with thin liquids there, which will be resumed during hospitalization. Monitor blood glucose, and if they run high, we may instead place him on a consistent carbohydrate diet. 01/19/18 Patient continues to demonstrate pancytopenia and FOB is positive. Peripheral smear and thrombotic panel are pending. s/p 1 leukoreduced irradiated plateletpheresis pack Repeat PTT 23.5--suspect elevated PTT yesterday was drawn through a heparinized line. Additional coag studies pending including PTT mixing study. Hemoglobin and platelet count drifting down following transfusion of platelets yesterday, GI blood loss present but not actively bleeding, continue to monitor. Elevated methotrexate level of 0.13-3 days after medication discontinued reported to Dr. Ramsey this morning; continue leucovorin. Probable cause of neutropenia, thrombocytopenia, and liver enzyme abnormalities. Will hold Plaquenil as this can also cause leukopenia and thrombocytopenia. Continue IVF as he still appears a bit dry. long-term notes reviewed. He is on a regular diet with thin liquids there, which will be resumed during hospitalization. BG has been stable. 01/20/18 Dr. Ramsey following. Peripheral smear, lupus studies and thrombotic panel are pending. S/p 1 leuko-reduced irradiated plateletpheresis pack on 01/18/18. Platelets 73--> 59-->45K. Per Dr. Ramsey's note - "transfuse if <20K w/ increased PTT" Plaquenil & MTX remain on hold. Methotrexate level at <0.04 today. Continues on Leucovorin. LFT's improving. Hgb is stable despite black stools reported yesterday and today and + hemoccult. Continue to monitor. CBC in am. Continue IVF as he is not taking much po. BS was 65 this am and pt ate very little breakfast, thus Januvia was held. 01/21/18 Dr. Ramsey following. Neutropenia worsening, slow drift down in platelet count after platelet transfusion on date of admission. S/p 1 leuko-reduced irradiated plateletpheresis pack on 01/18/18. Platelets 73--> 59-->45--> 38K. Discussed with Dr. Villalta today, continue oral folic acid. Leucovorin discontinued. Methotrexate discontinued a couple of days prior to hospitalization but level remained toxic on admission. Plaquenil & MTX remain on hold. Hold Depakote due to pancytopenia. Continue to monitor counts daily-all drifting down. Black stools reported prior days however today patient had brown stools. Poor oral intake-spoke with patient's daughter today and she indicates this preceded hospitalization. Continue IVF due to poor oral intake. Blood sugars stable, blood pressure stable. Januvia on hold. Daughter updated-confirms DO NOT RESUSCITATE.
== END 2018-01-22 19:06 | disposition expired | DRG 808 ==
LOC: ED 10:48 → EDHOLD 10:48 → MED 14:50 → SUATTDRO 23:28 → CCU 01-22 13:55
PROVIDERS: ADMIT Internal Medicine; ATTEND Family Medicine